=== PATIENT | female | born 1940 | race Caucasian/White ===

== ENCOUNTER 2019-06-12 12:36 | Outpatient (REF) | payer MEDICARE, SELFPAY ==
[2019-06-12 21:44] LABS: Anion Gap 11.1 mmol/L (3-11); BUN 13 mg/dL (7-18); CO2 28.9 mmol/L (21.0-32.0); CREATININE 0.87 mg/dL (0.55-1.02); Calcium 8.8 mg/dL (8.5-10.1); Chloride 100 mmol/L (98-107); Glucose 94 mg/dL (70-100); Sodium 140 mmol/L (136-145)
== END 2019-06-12 12:56 ==
LOC: NCHCN 12:36
PROVIDERS: PCP Nurse Practitioner Family; Visit Provider Family Medicine
DX: I10 Essential (primary) hypertension (principal)
CPT/HCPCS: 80048

== ENCOUNTER 2020-05-15 12:16 | Outpatient (REF) | payer MEDICARE, SELFPAY ==
[2020-05-15 20:15] LABS: Abs Immature Grans 0.01 10^3/uL (0.0-0.06); Absolute Basophil Count 0.06 10^3/uL (0.0-0.2); Absolute Eosinophil Count 0.06 10^3/uL (0.0-0.7); Absolute Lymphocyte Count 0.86 10^3/uL (1.2-3.4); Absolute Monocyte Count 0.38 10^3/uL (0.1-0.8); Absolute Neutrophil Count 3.05 10^3/uL (1.2-6.7); Basophils % 1.4; Eosinophils % 1.4; HCT 39.9 % (36.0-46.0); HGB 13.1 g/dL (11.2-15.7); Immature Grans % 0.2; Lymphocytes % 19.5; MCH 31.3 pg (27.0-33.0); MCHC 32.8 % (32.0-36.0); MCV 95.2 fL (80-95); MPV 11.7 fL (8.0-11.0); Monocytes % 8.6; Neutrophils % 68.9; Platelet Count 203 10^3/uL (130-400); RBC 4.19 10^6/uL (3.93-5.22); RDW 12.6 % (11.7-14.6); RDW-SD 43.9 fL; WBC 4.42 10^3/uL (4.4-10.8)
[2020-05-15 20:31] LABS: ALT 23 U/L (14-59); AST 13 U/L (15-37); Albumin 3.9 g/dL (3.4-5.0); Alkaline Phosphatase 93 U/L (46-116); Anion Gap 8.8 mmol/L (3-11); BUN 19 mg/dL (7-18); Bilirubin, Total 0.5 mg/dL (0.2-1.0); CO2 29.2 mmol/L (21.0-32.0); Calcium 9.3 mg/dL (8.5-10.1); Chloride 100 mmol/L (98-107); Estimated GFR 53.35 (mL/min/1.73m2); Glucose 96 mg/dL (74-106); Potassium 3.8 mmol/L (3.5-5.1); Sodium 138 mmol/L (136-145); Total Protein 7.1 g/dL (6.4-8.2)
== END 2020-05-15 12:36 ==
LOC: NCHCN 12:16
PROVIDERS: PCP Nurse Practitioner Family; Visit Provider Family Medicine
DX: I10 Essential (primary) hypertension (principal); G57.02 Lesion of sciatic nerve, left lower limb
CPT/HCPCS: 80053; 85025

== ENCOUNTER 2020-10-01 22:21 | Outpatient (REF) | payer MEDICARE, SELFPAY ==
[2020-10-01 21:37] LABS: Abs Immature Grans 0.02 10^3/uL (0.0-0.06); Absolute Basophil Count 0.03 10^3/uL (0.0-0.2); Absolute Eosinophil Count 0.01 10^3/uL (0.0-0.7); Absolute Lymphocyte Count 0.92 10^3/uL (1.2-3.4); Absolute Neutrophil Count 3.97 10^3/uL (1.2-6.7); Basophils % 0.6; Eosinophils % 0.2; HCT 36.5 % (36.0-46.0); HGB 12.3 g/dL (11.2-15.7); Immature Grans % 0.4; Lymphocytes % 17.2; MCH 29.7 pg (27.0-33.0); MCHC 33.7 % (32.0-36.0); MCV 88.2 fL (80-95); Monocytes % 7.5; Neutrophils % 74.1; Nucleated RBC 0 %; Platelet Count 187 10^3/uL (130-400); RBC 4.14 10^6/uL (3.93-5.22); RDW-SD 38.8 fL; WBC 5.35 10^3/uL (4.4-10.8)
[2020-10-01 22:31] LABS: ESR 22 mm/hr (0-30)
== END 2020-10-01 22:41 ==
LOC: NCHCN 22:21
PROVIDERS: PCP Nurse Practitioner Family; Visit Provider Family Medicine
DX: G57.02 Lesion of sciatic nerve, left lower limb (principal)
CPT/HCPCS: 85652; 85025

== ENCOUNTER 2020-10-22 12:41 | Outpatient (REF) | payer MEDICARE, SELFPAY ==
[2020-10-22 13:26] LABS: Abs Immature Grans 0.01 10^3/uL (0.0-0.06); Absolute Basophil Count 0.03 10^3/uL (0.0-0.2); Absolute Eosinophil Count 0.01 10^3/uL (0.0-0.7); Absolute Lymphocyte Count 0.82 10^3/uL (1.2-3.4); Absolute Monocyte Count 0.33 10^3/uL (0.1-0.8); Absolute Neutrophil Count 3.75 10^3/uL (1.2-6.7); Basophils % 0.6; Eosinophils % 0.2; HCT 35.9 % (36.0-46.0); HGB 12.4 g/dL (11.2-15.7); Immature Grans % 0.2; Lymphocytes % 16.6; MCH 29.9 pg (27.0-33.0); MCHC 34.5 % (32.0-36.0); MCV 86.5 fL (80-95); MPV 10.1 fL (8.0-11.0); Monocytes % 6.7; Neutrophils % 75.7; Nucleated RBC 0 %; Platelet Count 301 10^3/uL (130-400); RBC 4.15 10^6/uL (3.93-5.22); RDW 11.9 % (11.7-14.6); RDW-SD 37.4 fL; WBC 4.95 10^3/uL (4.4-10.8)
[2020-10-22 14:01] LABS: ALT 28 U/L (14-59); AST 21 U/L (15-37); Albumin 3.7 g/dL (3.4-5.0); Alkaline Phosphatase 84 U/L (46-116); Anion Gap 6.3 mmol/L (3-11); BUN 14 mg/dL (7-18); Bilirubin, Total 0.4 mg/dL (0.2-1.0); CO2 31.7 mmol/L (21.0-32.0); CREATININE 0.86 mg/dL (0.55-1.02); Chloride 94 mmol/L (98-107); Glucose 107 mg/dL (74-106); Potassium 3.9 mmol/L (3.5-5.1); Sodium 132 mmol/L (136-145); Total Protein 6.8 g/dL (6.4-8.2)
== END 2020-10-22 13:01 ==
LOC: NCHCN 12:41
PROVIDERS: PCP Nurse Practitioner Family; Visit Provider Family Medicine
DX: K58.9 Irritable bowel syndrome, unspecified (principal)
CPT/HCPCS: 80053; 85025

== ENCOUNTER 2020-11-05 13:49 | Outpatient (REF) | payer MEDICARE, SELFPAY ==
[2020-11-05 21:42] LABS: C Diff PCR Negative (Negative)
[2020-11-07 11:07] LABS: Campylobacter PCR Negative (Negative); Salmonella PCR Negative (Negative); Shiga Toxin PCR Negative (Negative); Shigella/Enteroinvasive Ecoli Negative (Negative)
== END 2020-11-05 14:09 ==
LOC: NCHCN 13:49
PROVIDERS: PCP Nurse Practitioner Family; Visit Provider Family Medicine
DX: R19.7 Diarrhea, unspecified (principal)
CPT/HCPCS: 87493; 87505

== ENCOUNTER 2020-12-30 11:45 | Outpatient (REF) | payer MEDICARE, SELFPAY | END 2020-12-30 11:46 | disposition home or self-care (01) | LOC: NCHCN 11:45 | PROVIDERS: PCP Nurse Practitioner Family; Visit Provider Internal Medicine | DX: R39.15 Urgency of urination (principal) | CPT/HCPCS: 87086 ==

== ENCOUNTER 2021-01-13 17:06 | Outpatient (REF) | payer MEDICARE, SELFPAY ==
[2021-01-13 21:17] LABS: Epithelial Cells Negative HPF (Negative); RBC Negative HPF (0-2); WBC Negative HPF (0-5)
[2021-01-13 21:18] LABS: Bacteria Negative HPF (Negative); C & S Indicated? No; Crystals Negative HPF (Negative); Mucus Negative (Negative)
== END 2021-01-13 17:07 | disposition home or self-care (01) ==
LOC: NCHCN 17:06
PROVIDERS: PCP Nurse Practitioner Family; Visit Provider Internal Medicine
DX: R31.1 Benign essential microscopic hematuria (principal); R39.15 Urgency of urination
CPT/HCPCS: 81015

== ENCOUNTER 2021-10-03 15:00 | Outpatient (REF) | payer MEDICARE, SELFPAY ==
[2021-10-03 15:08] LABS: Anion Gap 3.4 mmol/L (3-11); BUN 16 mg/dL (7-18); CO2 34.6 mmol/L (21.0-32.0); CREATININE 1.1 mg/dL (0.55-1.02); Calcium 8.9 mg/dL (8.5-10.1); Calculated LDL 110 mg/dL (<100); Chloride 101 mmol/L (98-107); Cholesterol 227 mg/dL (<200); Estimated GFR 47.55 (mL/min/1.73m2); Glucose 173 mg/dL (74-106); HDL Cholesterol 105 mg/dL (40-60); Potassium 3.7 mmol/L (3.5-5.1); Sodium 139 mmol/L (136-145); Triglyceride 62 mg/dL (<150)
[2021-10-03 15:48] LABS: Vitamin B12 638 pg/mL (193-986)
== END 2021-10-03 15:01 | disposition home or self-care (01) ==
LOC: NCHCN 15:00
PROVIDERS: PCP Nurse Practitioner Family; Visit Provider Family Medicine
DX: I10 Essential (primary) hypertension (principal); G62.9 Polyneuropathy, unspecified; Z13.220 Encounter for screening for lipoid disorders
CPT/HCPCS: 80048; 80061; 82607; 84443

== ENCOUNTER 2022-04-22 18:35 | Outpatient (REF) | payer MEDICARE, SELFPAY | END 2022-04-22 18:36 | disposition home or self-care (01) | LOC: NCHCN 18:35 | PROVIDERS: PCP Nurse Practitioner Family; Visit Provider Registered Nurse | DX: R39.15 Urgency of urination (principal); R31.9 Hematuria, unspecified | CPT/HCPCS: 87077; 87086; 87186 ==

== ENCOUNTER 2022-07-01 21:55 | Outpatient (REF) | payer MEDICARE, SELFPAY ==
[2022-07-01 21:12] LABS: BUN 22 mg/dL (7-18); Calcium 8.8 mg/dL (8.5-10.1); Chloride 99 mmol/L (98-107); Glucose 118 mg/dL (74-106); Potassium 4.1 mmol/L (3.5-5.1); Sodium 135 mmol/L (136-145)
== END 2022-07-01 21:56 | disposition home or self-care (01) ==
LOC: NCHCN 21:55
PROVIDERS: PCP Nurse Practitioner Family; Visit Provider Family Medicine
DX: I10 Essential (primary) hypertension (principal)
CPT/HCPCS: 80048

== ENCOUNTER 2022-11-25 21:31 | Outpatient (REF) | payer MEDICARE, OTHER, SELFPAY ==
[2022-11-25 21:47] LABS: HCT 38.8 % (36.0-46.0); HGB 12.6 g/dL (11.2-15.7); MCH 29.9 pg (27.0-33.0); MCHC 32.5 % (32.0-36.0); MCV 92 fL (80-95); MPV 11.2 fL (8.0-11.0); Platelet Count 228 10^3/uL (130-400); RBC 4.21 10^6/uL (3.93-5.22); RDW 13.1 % (11.7-14.6); RDW-SD 43.8 fL; WBC 5.93 10^3/uL (4.4-10.8)
[2022-11-25 22:44] LABS: ALT 35 U/L (14-59); AST 26 U/L (15-37); Albumin 3.7 g/dL (3.4-5.0); Alkaline Phosphatase 114 U/L (46-116); Anion Gap 7.7 mmol/L (3-11); BUN 19 mg/dL (7-18); Bilirubin, Total 0.3 mg/dL (0.2-1.0); CO2 31.3 mmol/L (21.0-32.0); CREATININE 1.1 mg/dL (0.55-1.02); Calcium 9.2 mg/dL (8.5-10.1); Chloride 102 mmol/L (98-107); Estimated GFR 49.86 (mL/min/1.73m2); Glucose 160 mg/dL (74-106); Potassium 3.6 mmol/L (3.5-5.1); Sodium 141 mmol/L (136-145); Total Protein 7.1 g/dL (6.4-8.2)
== END 2022-11-25 21:32 | disposition home or self-care (01) ==
LOC: LBN 21:31
PROVIDERS: PCP Nurse Practitioner Family; Visit Provider Obstetrics & Gynecology
DX: N95.0 Postmenopausal bleeding (principal); R93.89 Abnormal findings on diagnostic imaging of other specified body structures; Z01.818 Encounter for other preprocedural examination
CPT/HCPCS: 80053; 85027

== ENCOUNTER 2023-03-23 13:09 | Outpatient (REF) | payer MEDICARE, SELFPAY | END 2023-03-23 13:10 | disposition home or self-care (01) | LOC: NCHCN 13:09 | PROVIDERS: PCP Nurse Practitioner Family; Visit Provider Family Medicine | DX: R39.89 Other symptoms and signs involving the genitourinary system (principal); R82.998 Other abnormal findings in urine | CPT/HCPCS: 87077; 87086; 87186 ==

== ENCOUNTER 2023-06-28 17:45 | Outpatient (REF) | payer MEDICARE, SELFPAY | END 2023-06-28 17:46 | disposition home or self-care (01) | LOC: NCHCN 17:45 | PROVIDERS: PCP Nurse Practitioner Family; Visit Provider Registered Nurse | DX: R30.0 Dysuria (principal) | CPT/HCPCS: 87077; 87086; 87186 ==

== ENCOUNTER 2024-02-01 14:55 | Outpatient (REF) | payer MEDICARE, SELFPAY | END 2024-02-01 14:56 | disposition home or self-care (01) | LOC: NCHCN 14:55 | PROVIDERS: PCP Nurse Practitioner Family; Visit Provider Family Medicine | DX: R30.0 Dysuria (principal); R82.89 Other abnormal findings on cytological and histological examination of urine | CPT/HCPCS: 87086 ==

== ENCOUNTER 2024-04-05 19:35 | Outpatient (REF) | payer MEDICARE, SELFPAY ==
[2024-04-05 21:19] LABS: Abs Immature Grans 0.03 10^3/uL (0.0-0.06); Absolute Basophil Count 0.06 10^3/uL (0.0-0.2); Absolute Eosinophil Count 0.08 10^3/uL (0.0-0.7); Absolute Lymphocyte Count 1.21 10^3/uL (1.2-3.4); Absolute Monocyte Count 0.43 10^3/uL (0.1-0.8); Absolute Neutrophil Count 3.72 10^3/uL (1.2-6.7); Basophils % 1.1 %; Eosinophils % 1.4 %; HCT 36.9 % (36.0-46.0); HGB 12.3 g/dL (11.2-15.7); Immature Grans % 0.5 %; Lymphocytes % 21.9 %; MCH 30.1 pg (27.0-33.0); MCHC 33.3 % (32.0-36.0); MCV 90 fL (80-95); Monocytes % 7.8 %; Neutrophils % 67.3 %; RBC 4.08 10^6/uL (3.93-5.22); RDW 12.8 % (11.7-14.6); RDW-SD 42.1 fL; WBC 5.53 10^3/uL (4.4-10.8)
[2024-04-05 21:43] LABS: Diff Comment PLT Morph Reviewed; RBC Morphology Normal
[2024-04-05 21:44] LABS: ALT 38 U/L (14-59); AST 28 U/L (15-37); Albumin 3.7 g/dL (3.4-5.0); Alkaline Phosphatase 99 U/L (46-116); Anion Gap 4.2 mmol/L (3-11); BUN 20 mg/dL (7-18); Bilirubin, Total 0.29 mg/dL (0.2-1.0); CO2 33.8 mmol/L (21.0-32.0); CREATININE 1.3 mg/dL (0.55-1.02); Calcium 9.5 mg/dL (8.5-10.1); Calculated LDL 105 mg/dL (<100); Chloride 97 mmol/L (98-107); Cholesterol 221 mg/dL (<200); Estimated GFR 40.55 (mL/min/1.73m2); Glucose 89 mg/dL (74-106); HDL Cholesterol 96 mg/dL (40-60); Potassium 4.1 mmol/L (3.5-5.1); Sodium 135 mmol/L (136-145); Total Protein 7.3 g/dL (6.4-8.2); Triglyceride 104 mg/dL (<150); Vitamin D 25 Total 12.9 ng/mL (30-100)
== END 2024-04-05 19:36 | disposition home or self-care (01) ==
LOC: NCHCN 19:35
PROVIDERS: PCP Nurse Practitioner Family; Visit Provider Family Medicine
DX: N18.32 Chronic kidney disease, stage 3b (principal); I10 Essential (primary) hypertension; M81.0 Age-related osteoporosis without current pathological fracture
CPT/HCPCS: 80053; 80061; 82306; 85025

== ENCOUNTER 2024-04-14 21:42 | Outpatient (REF) | payer MEDICARE, SELFPAY ==
[2024-04-14 22:44] LABS: COMMENT (LAB VIEW ONLY) 69.94 mg/dL
== END 2024-04-14 21:43 | disposition home or self-care (01) ==
LOC: NCHCN 21:42
PROVIDERS: PCP Nurse Practitioner Family; Visit Provider Family Medicine
DX: N18.32 Chronic kidney disease, stage 3b (principal)
CPT/HCPCS: 82043; 82570

== ENCOUNTER 2024-07-11 14:21 | Outpatient (REF) | payer MEDICARE, SELFPAY ==
[2024-07-11 22:34] LABS: Vitamin D 25 Total 55.9 ng/mL (30-100)
== END 2024-07-11 14:22 | disposition home or self-care (01) ==
LOC: NCHCN 14:21
PROVIDERS: PCP Nurse Practitioner Family; Visit Provider Family Medicine
DX: E55.9 Vitamin D deficiency, unspecified (principal)
CPT/HCPCS: 82306

== ENCOUNTER 2024-09-06 15:12 | Outpatient (REF) | payer MEDICARE, SELFPAY ==
[2024-09-06 21:18] LABS: Anion Gap 5.1 mmol/L (3-11); BUN 16 mg/dL (7-18); CO2 32.9 mmol/L (21.0-32.0); CREATININE 1.1 mg/dL (0.55-1.02); Calcium 9.8 mg/dL (8.5-10.1); Chloride 101 mmol/L (98-107); Estimated GFR 49.24 (mL/min/1.73m2); Glucose 95 mg/dL (74-106); Potassium 4.6 mmol/L (3.5-5.1); Sodium 139 mmol/L (136-145)
[2024-09-06 21:25] LABS: HCT 42.6 % (36.0-46.0); MCH 30.4 pg (27.0-33.0); MCHC 32.9 % (32.0-36.0); MCV 93 fL (80-95); MPV 11.1 fL (8.0-11.0); Platelet Count 211 10^3/uL (130-400); RDW 12.3 % (11.7-14.6); RDW-SD 41.9 fL; WBC 4.95 10^3/uL (4.4-10.8)
== END 2024-09-06 15:13 | disposition home or self-care (01) ==
LOC: NCHCN 15:12
PROVIDERS: PCP Nurse Practitioner Family; Visit Provider Family Medicine
DX: K62.5 Hemorrhage of anus and rectum (principal)
CPT/HCPCS: 80048; 85027

== ENCOUNTER 2025-03-19 16:08 | Outpatient (REF) | payer MEDICARE, SELFPAY ==
[2025-03-19 15:11] LABS: NT-proBNP 131 pg/mL (<300)
== END 2025-03-19 16:09 | disposition home or self-care (01) ==
LOC: NCHCN 16:08
PROVIDERS: Visit Provider Family Medicine
DX: R60.0 Localized edema (principal)
CPT/HCPCS: 83880

== ENCOUNTER 2025-06-04 16:14 | Outpatient (REF) | payer MEDICARE, SELFPAY | END 2025-06-04 16:15 | disposition home or self-care (01) | LOC: NCHCN 16:14 | PROVIDERS: Visit Provider Family Medicine | DX: R30.0 Dysuria (principal) | CPT/HCPCS: 87077; 87086; 87186 ==